=== PATIENT | male | born 1985 | race Caucasian/White ===

== ENCOUNTER 2024-11-25 12:26 | Emergency (ER) | payer MEDICAID ==
[~2024-11-25] VITALS: Ht 182.9 cm; Wt 81.8 kg
[~2024-11-25 12:26] MED LIST: ALBU18HF2 INH; PRED10TA PO
[2024-11-25 12:45] VITALS: BP 115/84; PULSE 106; RESP 16; TEMP 98.3; O2SAT 97
[2024-11-25] MEDS ORDERED: BUPR8TAB4 SL (12:56)
== END 2024-11-25 13:05 | disposition home or self-care (01) ==
LOC: ER 12:27
DX: F11.20 Opioid dependence, uncomplicated (principal); J45.909 Unspecified asthma, uncomplicated; Z76.0 Encounter for issue of repeat prescription; Z79.899 Other long term (current) drug therapy
CPT/HCPCS: 99281

== ENCOUNTER 2025-01-10 07:24 | Emergency (ER) | payer MEDICAID ==
[~2025-01-10] VITALS: Ht 188 cm; Wt 74.0 kg
[~2025-01-10 07:24] MED LIST changes: +BUPR8TAB4 SL
[2025-01-10 07:26] VITALS: BP 130/95; PULSE 68; RESP 18; TEMP 97.4; O2SAT 99
--- NOTE | 2025-01-10 08:20 | Physician Documentation ---
History of Present Illness ~ Chief Complaint: Foreign body Stated Complaint: EYE PAIN Time Seen by MD: 08:15 HPI 39-year-old male presenting for a foreign body in his left eye. He states that he started noticing it a couple of days ago and has been gradually worsening. H e states that there he has the sensation that there is a piece of sand were something in his eye. His eye has been irritated and watering during this time. He denies any loss of vision but states his vision is little bit blurry because of all the tearing that is coming from his eye. Medication Reconciliation Allergies: Coded Allergies: No Known Allergies (Unverified , 01/10/25) Scheduled Albuterol Sulfate (Ventolin Hfa), 2 PUFFS INH Q4HPRN Buprenorphine Hcl (Buprenorphine Hcl), 3 TAB SL QDAY PRN Prednisone (Prednisone), 0 PO DAILY Past Medical History Past Medical History: No Pertinent History, Asthma Past Surgical History: no surgical history Alcohol Use: None Review of Systems All Other Systems at this time: Reviewed and Negative Physical Exam Vital Signs: Temperature: 97.4, Source: Temporal, Heart Rate: 68, Respiratory Rate: 18, BP: 130/95, Pulse Oximetry: 99, Weight: 73.950 Physical Exam I have reviewed the triage vitals. CONST: Well developed and well nourished. In no acute distress HENT: Head Atraumatic EYES: Right eye is normal. Left eye indicates some conjunctival and scleral erythema. There appears to be a black foreign body over the pupil. NECK: Normal range of motion. Supple. CARDIO: Normal rate and regular rhythm. No murmurs, rubs, or gallops. S1, S2. PULM/CHEST: No respiratory distress. Lungs clear to auscultation. No wheeze ABD: Soft and nontender. Nondistended. Bowel sounds normal. No guarding. : Exam deferred MSK: No edema. No deformity. NEURO: Alert and oriented to person, place and time. Moving all extremities SKIN: Warm and dry. PSYCH: Normal mood and affect. Good eye contact. Procedures Eye Procedure Alcaine Drops Administered: Yes Foreign Body/Rust Ring Removal: removal w/ needle Reexamination after removal: abrasion, other (Foreign body partially removed but still present) Eye Irrigated w/ Saline (ccs): 20 Tolerated Procedure Well?: yes, no complications Procedure Note 25 gauge needle was used to remove foreign body. Foreign body was partially removed but part of the foreign body remains in the eye despite manipulation. Progress Results/Orders Results/Orders Completed Orders - FILIPPO ACHARYA MD Tetracaine Ophthalmic Drops (Tetracaine (01/10/25 08:35) Tetracaine 0.5% Ophth Drops (Tetravisc 0 (01/10/25 08:40) Vital Signs 01/10/25 07:26 Temp 97.4 Pulse 68 Resp 18 B/P (MAP) 130/95 Pulse Ox 99 Medical Decision Making Additional Comment 39-year-old male presenting with a foreign body in his left eye. We attempted to remove the foreign body-please see procedure note. Part of the foreign body was removed however part of it remains embedded in the cornea and we were unsuccessful in fully removing the foreign body. We did speak with [facility] and they informed us that they can see the patient today at 10:30 a.m.. Thus we will discharge the patient to go directly to the eye clinic for foreign body removal. Patient was also prescribed ciprofloxacin ophthalmic to use after his procedure in the eye clinic as he did sustain a corneal abrasion as well. Departure Disposition: 01 HOME / SELF CARE / HOMELESS Impression: Primary Impression: Foreign body in eyeball, left Additional Impression: Corneal abrasion Discharge Instructions: Foreign Body, Eye Additional Instructions: Go directly to [facility] for foreign body removal. Referrals: NO PRIMARY CARE PROVIDER (PCP) Prescriptions Ciprofloxacin Hcl Ophth* (Ciloxan 0.35 Ophth Drops*) 2.5 Ml Bottle 1 DROP LEFTEYE Q6H for 7 Days, #5 ML Prov: FILIPPO ACHARYA MD 01/10/25 Signature Scribe Signature: 1 Attestation: 1 FILIPPO ACHARYA MD Jan 10, 2025 08:20
[2025-01-10] MEDS: TETRAcaine 0.5% ophthalmic drops 15ml EACHEYE ONE (09:23)
[2025-01-10] MEDS: TETRACAINE 0.5% 4 ML OPHTHALMIC DROPS EACHEYE ONE (09:23)
[2025-01-10] MEDS ORDERED: CIPR2.5D21 LEFTEYE (10:02)
== END 2025-01-10 10:10 | disposition home or self-care (01) ==
LOC: ER 07:24
DX: S05.02XA Injury of conjunctiva and corneal abrasion without foreign body, left eye, initial encounter (principal); Z79.899 Other long term (current) drug therapy; X58.XXXA Exposure to other specified factors, initial encounter; Y93.89 Activity, other specified; Y92.89 Other specified places as the place of occurrence of the external cause; Y99.8 Other external cause status
CPT/HCPCS: 65220; 99284